=== PATIENT | female | born 1985 | race Native Hawaiian/Other Pacific Islander ===

== ENCOUNTER 2023-01-02 14:46 | Emergency (ER) | payer OTHER ==
[~2023-01-02] VITALS: Ht 165.1 cm; Wt 72.6 kg
[2023-01-02 14:50] VITALS: BP 119/58; TEMP 98.2
== END 2023-01-02 16:22 | disposition home or self-care (01) ==
LOC: ED 14:46
DX: R07.89 Other chest pain (principal); Z79.891 Long term (current) use of opiate analgesic
CPT/HCPCS: 93005; 99284; J1885

== ENCOUNTER 2023-04-03 22:45 | Emergency (ER) | payer OTHER ==
[~2023-04-03] VITALS: Ht 165.1 cm; Wt 65.8 kg
[2023-04-03 23:50] VITALS: BP 122/66; TEMP 98.3
[2023-04-04] MEDS ORDERED: SUBOXONE1 MI2 SL (04:24)
== END 2023-04-03 23:50 | disposition home or self-care (01) ==
LOC: ED 22:45
DX: S41.052A Open bite of left shoulder, initial encounter (principal); T63.001A Toxic effect of unspecified snake venom, accidental (unintentional), initial encounter
CPT/HCPCS: 96372; 99283; J0696

== ENCOUNTER 2023-06-27 16:53 | Emergency (ER) | payer OTHER ==
[~2023-06-27] VITALS: Ht 160 cm; Wt 59.0 kg
[2023-06-27 16:53] VITALS: BP 121/91; TEMP 98.6
[~2023-06-27 16:53] MED LIST: SUBOXONE1 MI2 SL
[2023-06-27 17:25] LABS: PLATELET COUNT 367 K/uL (152-353)
[2023-06-27 17:28] LABS: POTASSIUM 4.3 mmol/L (3.6-5.2)
== END 2023-06-28 17:30 | disposition left against medical advice (07) ==
LOC: ED 16:53
PROVIDERS: Family Medicine
DX: T14.91XA Suicide attempt, initial encounter (principal); F32.A Depression, unspecified; Z02.79 Encounter for issue of other medical certificate; F17.210 Nicotine dependence, cigarettes, uncomplicated
CPT/HCPCS: 80053; 80143; 80179; 80307; 80320; 81000; 81025; 85027; 87077; 87086; 87088; 87186; 99285; J0696; J3360